=== PATIENT | male | born 1990 | race Caucasian/White ===

== ENCOUNTER 2017-03-05 13:50 | Emergency (ER) | payer MEDICAID ==
[2017-03-05] MEDS ORDERED: LORazepam 1 MG Tab ONE (15:27)
[2017-03-05] MEDS ORDERED: LORazepam 1 MG Tab PO ONE (15:32)
--- NOTE | 2017-03-05 15:51 | EDM.PDOCBH ---
ED HPI GENERAL MEDICAL PROBLEM - General Chief Complaint: Drug or Alcohol Abuse Stated Complaint: DETOX Time Seen by Provider: 03/05/17 15:45 Source of Information: Reports: Patient, Other ( girl friend. ) History Limitations: Reports: No Limitations - History of Present Illness INITIAL COMMENTS - FREE TEXT/NARRATIVE: pt is very agitated and is having alot of trouble calming down He is very agitated. Onset: Gradual Duration: Day(s):, Other (Pt has been using a large amount of Meth and is very agitated. He has been drinking to bring him down, ) Location: Reports: Generalized - Related Data Allergies Allergy/AdvReac Type Severity Reaction Status Date / Time No Known Allergies Allergy Verified 03/05/17 16:33 Home Meds: Home Meds Amitriptyline [Elavil] 50 mg PO BEDTIME 03/05/17 [History] Escitalopram [Lexapro] 20 mg PO DAILY 03/05/17 [History] Gabapentin [Neurontin] 100 mg PO TID 03/05/17 [History] Melatonin 10 mg PO BEDTIME 03/05/17 [History] busPIRone [Buspar] 15 mg PO BID 03/05/17 [History] Past Medical History - Past Health History Medical/Surgical History: Denies Medical/Surgical History Psychiatric History: Reports: Hallucinations, Panic Attack - Past Surgical History Musculoskeletal Surgical History: Reports: Other (See Below) Other Musculoskeletal Surgeries/Procedures:: LEFT KNEE SURGERY Social & Family History - Family History Psychiatric: Reports: Other (See Below) Other Psychiatric Family History: ETOH AND DRUG ADDITION - Tobacco Use Smoking Status *Q: Never Smoker - Caffeine Use Caffeine Use: Reports: Coffee - Alcohol Use Days Per Week of Alcohol Use: 7 Number of Drinks Per Day: 10 Total Drinks Per Week: 70 - Recreational Drug Use Recreational Drug Use: Yes Recreational Drug Type: Reports: Marijuana/Hashish, Methamphetamine Recreational Drug Use Frequency: Daily ED ROS GENERAL - Review of Systems Review Of Systems: See Below Constitutional: Reports: No Symptoms HEENT: Reports: No Symptoms Respiratory: Reports: No Symptoms Cardiovascular: Reports: Palpitations Endocrine: Reports: No Symptoms GI/Abdominal: Reports: No Symptoms : Reports: No Symptoms ED EXAM, BEHAVIORAL HEALTH - Physical Exam Exam: See Below Text/Narrative:: pt arrived with markd agitation. He is getting cleared for admission to [facility]. Exam Limited By: No Limitations General Appearance: Alert, Anxious, Moderate Distress Ears: Normal TMs Nose: Normal Inspection Throat/Mouth: Normal Inspection Head: Atraumatic Neck: Normal Inspection Respiratory/Chest: No Respiratory Distress Cardiovascular: Regular Rate, Rhythm GI/Abdominal: Soft, Non-Tender (Male) Exam: Deferred Rectal (Males) Exam: Deferred Back Exam: Normal Inspection Extremities: Normal Inspection Neurological: Alert, Oriented x 3 Psychiatric: Alert, Tearful, Agitated, Inattentive, Poor Eye Contact COURSE, BEHAVIORAL HEALTH COMP - Course Vital Signs: Last Vital Signs Temp 36.9 C 03/05/17 15:19 Pulse 127 H 03/05/17 15:19 Resp 16 03/05/17 15:19 BP 135/88 03/05/17 15:19 Pulse Ox 99 03/05/17 15:19 Orders, Labs, Meds: Laboratory Tests 03/05/17 03/05/17 03/05/17 Range/Units 15:30 15:30 16:25 WBC (4.5-11.0) K/uL RBC (4.30-5.90) M/uL Hgb (12.0-15.0) g/dL Hct (40.0-54.0) % MCV (80-98) fL MCH (27-31) pg MCHC (32-36) % Plt Count (150-400) K/uL Neut % (Auto) (36-66) % Lymph % (Auto) (24-44) % Rich % (Auto) (2-6) % Eos % (Auto) (2-4) % Baso % (Auto) (0-1) % Sodium (140-148) mmol/L Potassium (3.6-5.2) mmol/L Chloride (100-108) mmol/L Carbon Dioxide (21-32) mmol/L Anion Gap (5.0-14.0) mmol/L BUN (7-18) mg/dL Creatinine (0.8-1.3) mg/dL Est Cr Clr Drug Dosing mL/min Estimated GFR (MDRD) (>60) Glucose (74-106) mg/dL Calcium (8.5-10.1) mg/dL Total Bilirubin (0.2-1.0) mg/dL AST (15-37) U/L ALT (12-78) U/L Alkaline Phosphatase (46-116) U/L Total Protein (6.4-8.2) g/dL Albumin (3.4-5.0) g/dL Globulin (2.3-3.5) g/dL Albumin/Globulin Ratio (1.2-2.2) Urine Color Yellow Urine Appearance Clear Urine pH 6.0 (4.5-8.0) Ur Specific [place] 1.020 (1.008-1.030) Urine Protein Negative (NEGATIVE) mg/dL Urine Glucose (UA) Normal (NEGATIVE) mg/dL Urine Ketones 15 H (NEGATIVE) mg/dL Urine Occult Blood Negative (NEGATIVE) Urine Nitrite Negative (NEGAITVE) Urine Bilirubin Negative (NEGATIVE) Urine Urobilinogen 4 (NORMAL) mg/dL Ur Leukocyte Esterase Negative (NEGATIVE) Urine RBC 0-5 (0-5) Urine WBC 0-5 (0-5) Ur Epithelial Cells Rare Amorphous Sediment Moderate Urine Bacteria Moderate Urine Mucus Few Urine Opiates Screen Negative (NEGATIVE) Ur Oxycodone Screen Negative (NEGATIVE) Urine Methadone Screen Negative (NEGATIVE) Ur Propoxyphene Screen Negative (NEGATIVE) Ur Barbiturates Screen Negative (NEGATIVE) Ur Tricyclics Screen Positive H (NEGATIVE) Ur Phencyclidine Scrn Negative (NEGATIVE) Ur Amphetamine Screen Positive H (NEGATIVE) U Methamphetamines Scrn Positive H (NEGATIVE) Urine MDMA Screen Negative (NEGATIVE) U Benzodiazepines Scrn Negative (NEGATIVE) U Cocaine Metab Screen Negative (NEGATIVE) U Marijuana (THC) Screen Negative (NEGATIVE) Ethyl Alcohol 80 mg/dL 03/05/17 03/05/17 Range/Units 16:25 16:25 WBC 9.6 (4.5-11.0) K/uL RBC 5.26 (4.30-5.90) M/uL Hgb 16.4 H (12.0-15.0) g/dL Hct 44.6 (40.0-54.0) % MCV 85 (80-98) fL MCH 31 (27-31) pg MCHC 37 H (32-36) % Plt Count 403 H (150-400) K/uL Neut % (Auto) 41 (36-66) % Lymph % (Auto) 45 H (24-44) % Rich % (Auto) 10 H (2-6) % Eos % (Auto) 3 (2-4) % Baso % (Auto) 0 (0-1) % Sodium 142 (140-148) mmol/L Potassium 3.3 L (3.6-5.2) mmol/L Chloride 102 (100-108) mmol/L Carbon Dioxide 26 (21-32) mmol/L Anion Gap 17.3 H (5.0-14.0) mmol/L BUN 24 H (7-18) mg/dL Creatinine 1.0 (0.8-1.3) mg/dL Est Cr Clr Drug Dosing 58.02 mL/min Estimated GFR (MDRD) > 60 (>60) Glucose 98 (74-106) mg/dL Calcium 9.6 (8.5-10.1) mg/dL Total Bilirubin 0.7 (0.2-1.0) mg/dL AST 75 H (15-37) U/L ALT 89 H (12-78) U/L Alkaline Phosphatase 83 (46-116) U/L Total Protein 7.4 (6.4-8.2) g/dL Albumin 4.3 (3.4-5.0) g/dL Globulin 3.1 (2.3-3.5) g/dL Albumin/Globulin Ratio 1.4 (1.2-2.2) Urine Color Urine Appearance Urine pH (4.5-8.0) Ur Specific [place] (1.008-1.030) Urine Protein (NEGATIVE) mg/dL Urine Glucose (UA) (NEGATIVE) mg/dL Urine Ketones (NEGATIVE) mg/dL Urine Occult Blood (NEGATIVE) Urine Nitrite (NEGAITVE) Urine Bilirubin (NEGATIVE) Urine Urobilinogen (NORMAL) mg/dL Ur Leukocyte Esterase (NEGATIVE) Urine RBC (0-5) Urine WBC (0-5) Ur Epithelial Cells Amorphous Sediment Urine Bacteria Urine Mucus Urine Opiates Screen (NEGATIVE) Ur Oxycodone Screen (NEGATIVE) Urine Methadone Screen (NEGATIVE) Ur Propoxyphene Screen (NEGATIVE) Ur Barbiturates Screen (NEGATIVE) Ur Tricyclics Screen (NEGATIVE) Ur Phencyclidine Scrn (NEGATIVE) Ur Amphetamine Screen (NEGATIVE) U Methamphetamines Scrn (NEGATIVE) Urine MDMA Screen (NEGATIVE) U Benzodiazepines Scrn (NEGATIVE) U Cocaine Metab Screen (NEGATIVE) U Marijuana (THC) Screen (NEGATIVE) Ethyl Alcohol mg/dL Medications Discontinued Medications Generic Name Dose Route Start Last Admin Trade Name Freq PRN Reason Stop Dose Admin Escitalopram Oxalate 20 mg 03/05/17 17:07 Lexapro PO 03/05/17 17:08 ONETIME ONE Escitalopram Oxalate Confirm 03/05/17 17:42 03/05/17 17:49 Lexapro Administered 03/05/17 17:43 20 mg Dose Administration 20 mg .ROUTE .STK-MED ONE Gabapentin 100 mg 03/05/17 17:08 03/05/17 17:49 Neurontin PO 03/05/17 17:09 100 mg ONETIME ONE Administration Sodium Chloride 1,000 mls @ 999 mls/hr 03/05/17 16:00 Normal Saline IV ASDIRECTED MARK Lorazepam Confirm 03/05/17 15:27 03/05/17 15:41 Ativan Administered 03/05/17 15:28 Not Given Dose 1 mg .ROUTE .STK-MED ONE Lorazepam 1 mg 03/05/17 15:32 03/05/17 15:40 Ativan PO 03/05/17 15:33 1 mg ONETIME ONE Administration Lorazepam 999 mg 03/05/17 15:53 03/05/17 16:54 Ativan IVPUSH 03/05/17 15:54 Not Given ONETIME ONE Lorazepam 1 mg 03/05/17 16:03 03/05/17 16:54 Ativan IM 03/05/17 16:04 1 mg ONETIME ONE Administration Medical Clearance: 03/05/17 16:08 pt refused an Iv. He hs been given a total of 2 mg of ativan to attenpt to bring him down. 03/05/17 17:19 PT WAS GIVEN HIS LEXAPRO 20 MG AND HIS NEURONTIN 100MG. HE WAS ALSO GIVEN A SUPPER TRAY. Departure - Departure Time of Disposition: 15:25 Disposition: DC/Tfer to Psych Hosp/Unit 65 Condition: Fair Clinical Impression: Methamphetamine abuse, AA (alcohol abuse), Agitation - Discharge Information Instructions: Alcohol Use Disorder, Stimulant Use Disorder-Methamphetamines Referrals: PCP,None [Primary Care Provider] - Forms: ED Department Discharge Care Plan Goals: KWABENA MARLOW
[2017-03-05] MEDS ORDERED: LORazepam 2 MG/ML MDV IVPUSH ONE (15:53)
[2017-03-05] MEDS ORDERED: Sodium Chloride 0.9% 1,000 ML IV SCH (16:00)
[2017-03-05] MEDS ORDERED: LORazepam 2 MG/ML MDV IM ONE (16:03)
[2017-03-05] MEDS ORDERED: Escitalopram 20 MG Tab PO ONE (17:07)
[2017-03-05] MEDS ORDERED: Gabapentin 100 MG Cap PO ONE (17:08)
[2017-03-05] MEDS ORDERED: Escitalopram 10 MG Tab ONE (17:42)
== END 2017-03-05 17:59 ==
LOC: JP.ED 13:50
DX: F10.10 Alcohol abuse, uncomplicated (principal); F15.10 Other stimulant abuse, uncomplicated; R45.1 Restlessness and agitation; F41.0 Panic disorder [episodic paroxysmal anxiety]; Z79.899 Other long term (current) drug therapy; Y90.4 Blood alcohol level of 80-99 mg/100 ml
CPT/HCPCS: 36415; 80053; 80305; 81001; 85025; 96372; 99285; A9270; G0480; J2060; 99284

== ENCOUNTER 2020-10-04 23:25 | Emergency (ER) | payer MEDICAID ==
[2020-10-04] MEDS ORDERED: OLANZapine 5 MG Tab PO ONE (23:56)
[2020-10-05] MEDS ORDERED: OLANZapine 5 MG Tab ONE (00:11)
--- NOTE | 2020-10-05 00:53 | EDM.PDOCBH ---
<Low Alfonso - Last Filed: 10/05/20 06:36> ED HPI GENERAL MEDICAL PROBLEM - General Chief Complaint: Behavioral/Psych Stated Complaint: MEDICAL [facility]IA [facility] Time Seen by Provider: 10/04/20 23:40 Source of Information: Reports: Patient, EMS, Other ([facility]) History Limitations: Reports: No Limitations - History of Present Illness INITIAL COMMENTS - FREE TEXT/NARRATIVE: Jim is a 30-year-old male presenting via [facility] from [facility] for evaluation of suicide ideation. The patient was admitted to [facility] 2 days ago for methamphetamine and alcohol abuse. He apparently had recently been on a methamphetamine binge while in [place]. He uses methamphetamine and alcohol daily. He reports a pint of vodka a day. He also occasionally abuses benzodiazepines. Patient started making suicidal comments at the [facility]. This prompted him to be brought in for evaluation. The patient has been having auditory hallucinations. He actually went to treatment with 2 vials of methamphetamine that he was going to "blast" to attempt suicide but his friend talked him out of it and he ended up squirting out out the window. The patient has been restless and has not been on his Lexapro, Seroquel, or gabapentin for the last several weeks before he went on his binge. He has had suicidal thoughts in the past but has never acted on them. He feels helpless and hopeless and is concerned that he will act on his ideation no. - Related Data Allergies Allergy/AdvReac Type Severity Reaction Status Date / Time No Known Allergies Allergy Verified 10/04/20 23:50 Home Meds: Home Meds *Gabapentin 0 mg PO DAILY 10/04/20 [History] *Lexapro 0 mg PO DAILY 10/04/20 [History] *Seroquel 0 mg PO DAILY 10/04/20 [History] Past Medical History - Past Health History Medical/Surgical History: Denies Medical/Surgical History Psychiatric History: Reports: Hallucinations, Panic Attack - Past Surgical History Musculoskeletal Surgical History: Reports: Other (See Below) Other Musculoskeletal Surgeries/Procedures:: LEFT KNEE SURGERY Social & Family History - Family History Psychiatric: Reports: Other (See Below) Other Psychiatric Family History: ETOH AND DRUG ADDITION - Caffeine Use Caffeine Use: Reports: Coffee ED ROS GENERAL - Review of Systems Review Of Systems: See Below Constitutional: Reports: No Symptoms HEENT: Reports: No Symptoms Respiratory: Reports: No Symptoms Cardiovascular: Reports: No Symptoms Endocrine: Reports: No Symptoms GI/Abdominal: Reports: No Symptoms : Reports: No Symptoms Musculoskeletal: Reports: No Symptoms Skin: Reports: No Symptoms Neurological: Reports: Tremors Psychiatric: Reports: Anxiety, Depression, Hallucinations (Auditory hallucinations with "spirits talking to him". He states that they want him .), Suicidal Ideation Hematologic/Lymphatic: Reports: No Symptoms Immunologic: Reports: No Symptoms ED EXAM, BEHAVIORAL HEALTH - Physical Exam Exam: See Below Exam Limited By: No Limitations General Appearance: Alert, Anxious Eye Exam: Bilateral Eye: EOMI, PERRL Throat/Mouth: Normal Inspection, Normal Oropharynx, Normal Voice, No Airway Compromise Head: Atraumatic, Normocephalic Neck: Normal Inspection, Supple, Non-Tender, Full Range of Motion Respiratory/Chest: No Respiratory Distress, Lungs Clear, Normal Breath Sounds Cardiovascular: Normal Peripheral Pulses, Regular Rate, Rhythm, No Murmur GI/Abdominal: Normal Bowel Sounds, Soft, Non-Tender Back Exam: Normal Inspection Extremities: Normal Inspection, Normal Range of Motion Neurological: Alert, Normal Cognition, Normal Gait, No Motor/Sensory Deficits Psychiatric: Alert, Depressed Mood, Poor Eye Contact, Suicidal Plan, Suicidal Thoughts, Auditory Hallucinations Skin Exam: Warm, Dry COURSE, BEHAVIORAL HEALTH COMP - Course Re-Assessment/Re-Exam: I reviewed the patient's labs showing a normal CBC and comprehensive metabolic profile. The patient's U tox is positive for methamphetamine and benzodiazepines. His ethanol is negative at less than 3. The patient has been in detox at [facility] since 5 AM on 10/03/2020. Was positive for methamphetamine on intake at that time. The patient did admit to injecting methamphetamine just prior to going into treatment. From a medical standpoint, the patient is medically cleared for inpatient admission to psychiatry. Medical Clearance: 10/05/20 01:40 patient is medically cleared for inpatient admission to psychiatry. Discharge vs Psych Eval/Treatment:: 10/05/20 01:40 the patient has significant history of mental illness and has been off of his Lexapro, Seroquel, and gabapentin for at least the last 2 weeks before he went on his binge. He states that since going off those medications he has become quite dark and is having more auditory hallucinations. At one point he talked about demonic possession when talking with staff at [facility]. He is having active suicidal thoughts and is afraid that he is going to erupt. He does not have a past history of violence and denies any homicidal ideation. He feels that he is out of control. I do endorse that he meets the minimal requirements for inpatient admission and stabilization at this time and we will try to locate an inpatient bed that may be able to accommodate him. 10/05/20 06:36 we are still working on placement of the patient. Numerous facilities have been contacted but nothing was available so they will need to continue to pursue this today. The patient received olanzapine 15 mg p.o. last night and slept most of the night peacefully. For the most part the patient has been cooperative and remains voluntary, however, he is suicidal and is potentially holdable if he decides he wants to leave. Care of the patient will be turned over from Dr. Alfonso to Dr. Woodall at 0700 hrs. Departure - Departure Disposition: DC/Tfer to [place] [id number] Clinical Impression: Suicide ideation, Methamphetamine abuse, AA (alcohol abuse), Hallucinations, Depressive disorder - Discharge Information Instructions: Recovering From Addiction Referrals: PCP,None [Primary Care Provider] - Forms: ED Department Discharge Care Plan Goals: Finish your detox at [facility], follow their instructions and recommendations for further treatment and transfer to [facility] as planned. Let it happen, remember acceptance is montes to getting better. - Problem List & Annotations (1) Methamphetamine abuse SNOMED Code(s): 531112623 Code(s): F15.10 - OTHER STIMULANT ABUSE, UNCOMPLICATED Status: Acute Priority: High (2) AA (alcohol abuse) SNOMED Code(s): 94331442 Code(s): F10.10 - ALCOHOL ABUSE, UNCOMPLICATED Status: Acute Priority: High (3) Depressive disorder SNOMED Code(s): 77311127 Code(s): F32.9 - MAJOR DEPRESSIVE DISORDER, SINGLE EPISODE, UNSPECIFIED Status: Acute Priority: High (4) Hallucinations SNOMED Code(s): 1999558 Code(s): R44.3 - HALLUCINATIONS, UNSPECIFIED Status: Acute Priority: High (5) Suicide ideation SNOMED Code(s): 3573221 Code(s): R45.851 - SUICIDAL IDEATIONS Status: Acute Priority: High - Problem List Review Problem List Initiated/Reviewed/Updated: Yes <Michael Woodall - Last Filed: 10/05/20 14:13> COURSE, BEHAVIORAL HEALTH COMP - Course Vital Signs: Last Vital Signs Temp 97.7 F 10/04/20 23:59 Pulse 85 10/04/20 23:59 Resp 17 10/04/20 23:59 BP 134/87 10/04/20 23:59 Pulse Ox 100 10/04/20 23:59 Orders, Labs, Meds: Laboratory Tests 10/04/20 10/04/20 10/04/20 Range/Units 23:40 23:40 23:40 WBC 8.9 (4.5-11.0) K/uL RBC 4.64 (4.30-5.90) M/uL Hgb 14.4 D (12.0-15.0) g/dL Hct 41.9 (40.0-54.0) % MCV 90 (80-98) fL MCH 31 (27-31) pg MCHC 34 (32-36) % Plt Count 365 (150-400) K/uL Neut % (Auto) 66.0 (36-66) % Lymph % (Auto) 22.6 L (24-44) % [place] % (Auto) 9.0 H (2-6) % Eos % (Auto) 2.1 (2-4) % Baso % (Auto) 0.3 (0-1) % Sodium 143 (140-148) mmol/L Potassium 4.5 (3.6-5.2) mmol/L Chloride 105 (100-108) mmol/L Carbon Dioxide 28 (21-32) mmol/L Anion Gap 14.5 H (5.0-14.0) mmol/L BUN 19 H (7-18) mg/dL Creatinine 1.2 (0.8-1.3) mg/dL Est Cr Clr Drug Dosing 80.49 mL/min Estimated GFR (MDRD) > 60 (>60) Glucose 102 (74-106) mg/dL Calcium 9.2 (8.5-10.1) mg/dL Total Bilirubin 0.2 D (0.2-1.0) mg/dL AST 14 L D (15-37) U/L ALT 25 (12-78) U/L Alkaline Phosphatase 71 (46-116) U/L Total Protein 5.7 L (6.4-8.2) g/dL Albumin 3.2 L (3.4-5.0) g/dL Globulin 2.5 (2.3-3.5) g/dL Albumin/Globulin Ratio 1.3 (1.2-2.2) Urine Opiates Screen (NEGATIVE) Ur Oxycodone Screen (NEGATIVE) Urine Methadone Screen (NEGATIVE) Ur Propoxyphene Screen (NEGATIVE) Ur Barbiturates Screen (NEGATIVE) Ur Tricyclics Screen (NEGATIVE) Ur Phencyclidine Scrn (NEGATIVE) Ur Amphetamine Screen (NEGATIVE) U Methamphetamines Scrn (NEGATIVE) Urine MDMA Screen (NEGATIVE) U Benzodiazepines Scrn (NEGATIVE) U Cocaine Metab Screen (NEGATIVE) U Marijuana (THC) Screen (NEGATIVE) Ethyl Alcohol < 3 mg/dL SARS CoV-2 RNA Rapid ANTONIA 10/04/20 10/05/20 Range/Units 23:40 08:39 WBC (4.5-11.0) K/uL RBC (4.30-5.90) M/uL Hgb (12.0-15.0) g/dL Hct (40.0-54.0) % MCV (80-98) fL MCH (27-31) pg MCHC (32-36) % Plt Count (150-400) K/uL Neut % (Auto) (36-66) % Lymph % (Auto) (24-44) % [place] % (Auto) (2-6) % Eos % (Auto) (2-4) % Baso % (Auto) (0-1) % Sodium (140-148) mmol/L Potassium (3.6-5.2) mmol/L Chloride (100-108) mmol/L Carbon Dioxide (21-32) mmol/L Anion Gap (5.0-14.0) mmol/L BUN (7-18) mg/dL Creatinine (0.8-1.3) mg/dL Est Cr Clr Drug Dosing mL/min Estimated GFR (MDRD) (>60) Glucose (74-106) mg/dL Calcium (8.5-10.1) mg/dL Total Bilirubin (0.2-1.0) mg/dL AST (15-37) U/L ALT (12-78) U/L Alkaline Phosphatase (46-116) U/L Total Protein (6.4-8.2) g/dL Albumin (3.4-5.0) g/dL Globulin (2.3-3.5) g/dL Albumin/Globulin Ratio (1.2-2.2) Urine Opiates Screen Negative (NEGATIVE) Ur Oxycodone Screen Negative (NEGATIVE) Urine Methadone Screen Negative (NEGATIVE) Ur Propoxyphene Screen Negative (NEGATIVE) Ur Barbiturates Screen Negative (NEGATIVE) Ur Tricyclics Screen Negative (NEGATIVE) Ur Phencyclidine Scrn Negative (NEGATIVE) Ur Amphetamine Screen Negative (NEGATIVE) U Methamphetamines Scrn Presumptive positive H (NEGATIVE) Urine MDMA Screen Negative (NEGATIVE) U Benzodiazepines Scrn Presumptive positive H (NEGATIVE) U Cocaine Metab Screen Negative (NEGATIVE) U Marijuana (THC) Screen Negative (NEGATIVE) Ethyl Alcohol mg/dL SARS CoV-2 RNA Rapid ANTONIA Negative Medications Discontinued Medications Generic Name Dose Route Start Last Admin Trade Name Freq PRN Reason Stop Dose Admin Olanzapine Confirm 10/05/20 00:11 10/05/20 01:26 Olanzapine 5 Mg Tab Administered 10/05/20 00:12 Not Given Dose 15 mg .ROUTE .STK-MED ONE Olanzapine 15 mg 10/04/20 23:56 10/05/20 00:15 Olanzapine 5 Mg Tab PO 10/04/20 23:57 15 mg ONETIME ONE Administration Re-Assessment/Re-Exam: Patient admits that he would rather go to detox then go to an inpatient psychiatric facility, and no longer feels a threat to himself. He wants to go back to [facility] and finishes detox and then be transferred to long-term treatment tomorrow which has been planned in [facility]. [facility] is agreeable to taking him back, patient will be discharged back to detox. Departure - Departure Time of Disposition: 10:03
== END 2020-10-05 10:18 | disposition other institution (70) ==
LOC: JP.ED 23:25
DX: F32.9 Major depressive disorder, single episode, unspecified (principal); F15.10 Other stimulant abuse, uncomplicated; F10.10 Alcohol abuse, uncomplicated; Z20.822 Contact with and (suspected) exposure to COVID-19
CPT/HCPCS: 36415; 80053; 80305; 80307; 85025; 87635; 99285; A9270; U0002